=== PATIENT | female | born 1975 | race Two or more races ===

== ENCOUNTER 2018-04-29 17:01 | Inpatient (IN) | payer MEDICAID ==
[~2018-04-29] VITALS: Ht 165.1 cm; Wt 63.5 kg
[2018-04-29] MEDS ORDERED: KETOROLAC TROMETHAMINE 15 MG INJ ONE (17:10)
[2018-04-29] MEDS ORDERED: KETOROLAC TROMETHAMINE 15 MG INJ IM ONE (17:15)
[2018-04-29 17:18] LABS: BASOPHILS # (AUTO) 0.1 K/uL (0.0-8.0); EOSINOPHILS % (AUTO) 0.2 % (0.0-7.0); HEMATOCRIT 35.6 % (31.2-41.9); LYMPHOCYTES # (AUTO) 1.5 K/uL (20.0-40.0); LYMPHOCYTES % (AUTO) 24.5 % (20.5-51.5); MEAN CORPUSCULAR HEMOGLOBIN 28.9 uug (24.7-32.8); MEAN CORPUSCULAR HGB CONC 34 g/dL (32.3-35.6); MEAN CORPUSCULAR VOLUME 85.4 fL (75.5-95.3); MONOCYTES # (AUTO) 0.4 K/uL (2.0-10.0); MONOCYTES % (AUTO) 6.7 % (0.0-11.0); NEUTROPHILS # (AUTO) 4.1 K/uL (1.8-8.9); NEUTROPHILS % (AUTO) 67.6 % (38.5-71.5); PLATELET COUNT (AUTO) 198 K/uL (179-408); RED BLOOD CELL COUNT(AUTO) 4.16 MIL/uL (3.63-4.92); WHITE BLOOD COUNT (AUTO) 6.1 K/uL (3.8-11.8)
--- NOTE | 2018-04-29 17:18 | NUR ---
at bedside to examine patient.
[2018-04-29 17:25] LABS: CREATININE 0.9 mg/dL (0.6-1.3); POTASSIUM 3.9 mmol/L (3.5-5.1)
[2018-04-29 17:31] LABS: BILIRUBIN,DIRECT 0.1 mg/dL (0.0-0.2); BILIRUBIN,TOTAL 0.4 mg/dL (0.2-1.0); TOTAL PROTEIN, SERUM 8.1 g/dL (6.4-8.2)
--- NOTE | 2018-04-29 17:51 | NUR ---
US tech at bedside.
[2018-04-29] MEDS ORDERED: MORPHINE SULFATE 4 MG/1 ML DISP.SYRIN ONE (17:56)
[2018-04-29] MEDS ORDERED: ONDANSETRON ODT 4 MG TAB.RAPDIS ONE (17:57)
[2018-04-29] MEDS ORDERED: ONDANSETRON ODT 4 MG TAB.RAPDIS SL ONE (18:00)
[2018-04-29] MEDS ORDERED: MORPHINE SULFATE 4 MG/1 ML DISP.SYRIN IM ONE (18:00)
--- NOTE | 2018-04-29 18:33 | NUR ---
patient taken down for CT.
--- NOTE | 2018-04-29 18:50 | NUR ---
patient back from CT.
--- NOTE | 2018-04-29 18:59 | NUR ---
Bedside report given to rn. Bryant.
--- NOTE | 2018-04-29 19:26 | NUR ---
ENRIQUE speaking with Dr. Hua (SURGERY).
[2018-04-29] MEDS ORDERED: METRONIDAZOLE 500 MG/NS 100 ML PIGGYBACK IV ONE (19:30)
[2018-04-29] MEDS ORDERED: LEVOFLOXACIN 750 MG/D5W 150 ML PIGGYBACK IV ONE (19:30)
[2018-04-29] MEDS ORDERED: LEVOFLOXACIN 750MG/D5W 150 ML IV ONE (19:37)
[2018-04-29] MEDS ORDERED: METRONIDAZOLE 500 MG/NS 100ML 100 ML IV ONE (19:37)
--- NOTE | 2018-04-29 20:10 | NUR ---
Dr. Hua at bedside.
[2018-04-29] MEDS ORDERED: ONDANSETRON 4 MG/2 ML VIAL ONE (20:28)
[2018-04-29] MEDS ORDERED: ONDANSETRON IV *ER 4 MG/2 ML VIAL IV ONE (20:30)
[2018-04-29] MEDS ORDERED: HYDROMORPHONE 1 MG/1 ML DISP.SYRIN IV ONE (20:30)
[2018-04-29] MEDS ORDERED: HYDROMORPHONE 1 MG/1 ML DISP.SYRIN ONE (20:33)
--- NOTE | 2018-04-29 20:33 | NUR ---
Call placed to [facility], Dr. Laguerre has been paged.
--- NOTE | 2018-04-29 20:46 | NUR ---
Report given to Amparo GUTIERREZ Medsurg.
[2018-04-29] MEDS ORDERED: MORPHINE SULFATE 2 MG/1 ML DISP.SYRIN IV PRN (21:00)
--- NOTE | 2018-04-29 21:15 | NUR ---
Received patient from ED via gurney. Patient is alert and oriented x 4, Farsi speaking, she is accompanied by two friends. Noted patient has IV access at Right antecubital vein, 20g patent and intact. Patient nauseated at the moment, per ED RN patient was just been given Dilaudid and Zofran, will continue to monitor. Oriented patient to unit with her friends translating. Bed kept in low position, side rails up x 2, call light within reach. Noise and lights subdued. Will continue to monitor. Noted Dr. Hua of surgery has no final surgery plans for the patient.
[2018-04-29] MEDS: IV D5/ 0.9% NACL 1,000 ML IV PRN (21:46)
[2018-04-29 21:59] VITALS: BP 108/57
[2018-04-30] MEDS ORDERED: METRONIDAZOLE 500 MG/NS 100ML 100 ML IV ONE (01:08)
[2018-04-30 04:08] VITALS: BP 90/50
[2018-04-30] MEDS: ACETAMINOPHEN 650 MG SUPP.RECT RC PRN (04:57)
[2018-04-30] MEDS: METRONIDAZOLE 500 MG/NS 100ML 500 MG in PREMIXED 1 EACH IV SCH ×3 (05:02→22:21)
--- NOTE | 2018-04-30 05:58 | NUR ---
Patient slept well throughout the night. No recurrence of nause and vomiting noted. With abdominal pain recurrence, however patient's blood pressure was 90/50, morphine not g iven. After verification with mohsen Pandey RN, patient was given tylenol suppository. IV access at right antecubital vein now to ongoing IV fluid, infuisng well. Attended all needs. Ensured patient safety and comfort.
[2018-04-30 06:26] LABS: BASOPHILS % (AUTO) 0.1 % (0.0-2.0); HEMATOCRIT 30.7 % (31.2-41.9); HEMOGLOBIN 10.5 g/dL (10.9-14.3); LYMPHOCYTES # (AUTO) 0.5 K/uL (20.0-40.0); LYMPHOCYTES % (AUTO) 5.1 % (20.5-51.5); MEAN CORPUSCULAR HEMOGLOBIN 29.6 uug (24.7-32.8); MEAN CORPUSCULAR HGB CONC 34 g/dL (32.3-35.6); MONOCYTES # (AUTO) 0.4 K/uL (2.0-10.0); MONOCYTES % (AUTO) 3.8 % (0.0-11.0); NEUTROPHILS # (AUTO) 8.9 K/uL (1.8-8.9); PLATELET COUNT (AUTO) 151 K/uL (179-408); RED BLOOD CELL COUNT(AUTO) 3.57 MIL/uL (3.63-4.92); WHITE BLOOD COUNT (AUTO) 9.8 K/uL (3.8-11.8)
[2018-04-30 06:37] LABS: BILIRUBIN,TOTAL 0.7 mg/dL (0.2-1.0); CREATININE 0.9 mg/dL (0.6-1.3); MAGNESIUM 1.6 mg/dL (1.8-2.4); PHOSPHOROUS 3.4 mg/dL (2.5-4.9); POTASSIUM 3.6 mmol/L (3.5-5.1); TOTAL PROTEIN, SERUM 6.9 g/dL (6.4-8.2)
[2018-04-30] MEDS: PANTOPRAZOLE SODIUM 40 MG VIAL IV SCH (08:05)
[2018-04-30] MEDS ORDERED: MORPHINE SULFATE 4 MG/1 ML DISP.SYRIN IV PRN (08:15)
[2018-04-30] MEDS: IV D5/ 0.9% NACL 1,000 ML IV PRN (09:25)
[2018-04-30] MEDS: ONDANSETRON 4 MG/2 ML VIAL IV PRN (10:12)
[2018-04-30 11:34] VITALS: BP 90/48
[2018-04-30] MEDS: MAGNESIUM SULFATE/D5W 100 ML IV SCH ×2 (12:14→12:48)
[2018-04-30 14:31] LABS: BASOPHILS % (AUTO) 0.1 % (0.0-2.0); HEMATOCRIT 29.4 % (31.2-41.9); LYMPHOCYTES # (AUTO) 0.6 K/uL (20.0-40.0); LYMPHOCYTES % (AUTO) 5.4 % (20.5-51.5); MEAN CORPUSCULAR HEMOGLOBIN 29.6 uug (24.7-32.8); MEAN CORPUSCULAR HGB CONC 34 g/dL (32.3-35.6); MEAN CORPUSCULAR VOLUME 86.7 fL (75.5-95.3); MONOCYTES # (AUTO) 0.4 K/uL (2.0-10.0); MONOCYTES % (AUTO) 3.4 % (0.0-11.0); NEUTROPHILS # (AUTO) 9.4 K/uL (1.8-8.9); NEUTROPHILS % (AUTO) 91.1 % (38.5-71.5); PLATELET COUNT (AUTO) 134 K/uL (179-408); RED BLOOD CELL COUNT(AUTO) 3.39 MIL/uL (3.63-4.92); WHITE BLOOD COUNT (AUTO) 10.3 K/uL (3.8-11.8)
[2018-04-30 14:52] LABS: *BILIRUBIN,URIN NEGATIVE (NEGATIVE); *BLOOD, URINE 2+ (NEGATIVE); *CLARITY,URINE SLIGHTLY CLOUDY (CLEAR); *COLOR,URINE YELLOW (YELLOW); *KETONES,URINE NEGATIVE (NEGATIVE); *UROBILINOGEN,URINE 0.2 E.U./dl (NORMAL); LEUKOCYTE ESTERASE ,URINE TRACE (NEGATIVE); NITRITE, URINE NEGATIVE (NEGATIVE); PH,URINE 5.5 (5.0-8.0); UGLUCOSE NEGATIVE (NEGATIVE)
[2018-04-30 15:04] LABS: BACTERIA,URINE FEW /HPF (NONE SEEN); MUCUS,URINE MODERATE /LPF (0-FEW); SQUAMOUS EPITHELIAL CELL,UR MODERATE /HPF (NONE SEEN); URINE AMORPHOUS URATE FEW /HPF
[2018-04-30] MEDS ORDERED: GLYCOPYRROLATE 0.2 MG/ML VIAL MC ONE (15:06)
[2018-04-30] MEDS ORDERED: NEOSTIGMINE METHYLSULFATE 10 MG/10 ML VIAL IV ONE (15:06)
[2018-04-30] MEDS ORDERED: ONDANSETRON 4 MG/2 ML VIAL IV ONE (15:06)
[2018-04-30] MEDS ORDERED: PROPOFOL 200 MG/20 ML BOTTLE IV ONE (15:06)
[2018-04-30] MEDS ORDERED: IV LACTATED RINGERS SOLUTION 1,000 ML BAG IV ONE (15:06)
[2018-04-30] MEDS ORDERED: LIDOCAINE-MPF 2% 5 ML VIAL MC ONE (15:06)
[2018-04-30] MEDS ORDERED: KETOROLAC TROMETHAMINE 30 MG INJ IM ONE (15:06)
[2018-04-30] MEDS ORDERED: METOCLOPRAMIDE HCL 10 MG/2 ML VIAL IV ONE (15:06)
[2018-04-30] MEDS ORDERED: SEVOFLURANE 250 ML BOTTLE IH ONE (15:06)
[2018-04-30] MEDS ORDERED: MIDAZOLAM HCL 2 MG/2 ML VIAL ONE (15:33)
[2018-04-30] MEDS ORDERED: FENTANYL CITRATE 250 MCG/5 ML AMPUL ONE (15:33)
[2018-04-30] MEDS ORDERED: METOCLOPRAMIDE HCL 10 MG/2 ML VIAL ONE (15:33)
[2018-04-30 15:34] VITALS: BP 92/46
[2018-04-30] MEDS ORDERED: ROCURONIUM BROMIDE 50 MG/5 ML VIAL ONE (15:34)
--- NOTE | 2018-04-30 16:03 | NUR ---
pt went to or via bed for surgery in stable condition
[2018-04-30] MEDS ORDERED: CLINDAMYCIN PHOSPHATE 600 MG/4 ML VIAL ONE (16:07)
[2018-04-30] MEDS ORDERED: BUPIVACAINE/EPI PF 0.25% 30 ML VIAL ONE ×2 (16:07→16:13)
[2018-04-30] MEDS ORDERED: LIDOCAINE HCL 1% 20 ML VIAL ONE (16:07)
[2018-04-30] MEDS ORDERED: NEOMY/BACITRAC/POLYMI OINT 28.35 GM TUBE ONE (17:43)
[2018-04-30 19:12] VITALS: BP 95/43
--- NOTE | 2018-04-30 20:00 | NUR ---
Received patient via hospital bed from operating room accompanied by OR nurses. Received report from BRENDA Clancy. Patient has oxygen support at 2lpm via nasal cannula, saturation noted at 99-100%. Patient with IV access at right antecubital vein, 20g to ongoing D5LR, infusing well. Noted with post-operative dressing on the lower abdomen x 2 and another just above pubic area to jose patel drain, noted draining serosanguineous fluid, minimal in amount. Patient's vital signs are normal. Noted complaining of pain at the moment, prn pain medications given. Maintained on Clear Liquids as ordered. Will continue to monitor.
[2018-04-30] MEDS: MORPHINE SULFATE 4 MG/1 ML DISP.SYRIN IV PRN (20:52)
[2018-04-30] MEDS: CIPROFLOXACIN IV 400 MG in PREMIXED 1 EACH IV SCH (20:53)
[2018-04-30] MEDS: IV D5LR 1,000 ML IV PRN (20:53)
[2018-04-30] MEDS ORDERED: LEVOFLOXACIN 500 MG/D5W 500 MG in PREMIXED 1 EACH IV SCH (21:00)
[2018-04-30 22:00] VITALS: BP 99/53
[2018-04-30 23:00] VITALS: BP 96/59
[2018-05-01] MEDS: MORPHINE SULFATE 4 MG/1 ML DISP.SYRIN IV PRN ×3 (01:28→13:04)
[2018-05-01 02:19] VITALS: BP 95/49
--- NOTE | 2018-05-01 02:30 | NUR ---
Patient already able to void. PRN pain medication given for abdominal pain.
[2018-05-01 03:14] VITALS: BP 108/51
[2018-05-01] MEDS: IV D5LR 1,000 ML IV PRN ×2 (03:41→13:04)
[2018-05-01] MEDS: METRONIDAZOLE 500 MG/NS 100ML 500 MG in PREMIXED 1 EACH IV SCH ×3 (05:20→22:16)
[2018-05-01] MEDS: ACETAMINOPHEN 650 MG SUPP.RECT RC PRN (05:20)
--- NOTE | 2018-05-01 05:30 | NUR ---
Patient slept intermittently throughout the shift. With oxygen support at 2lpm via nasal cannula, saturation noted at 99-100%. Patient still with IV access at right antecubital vein, 20g to ongoing D5LR, infusing well. Noted with post-operative dressing on the lower abdomen x 2, dry and intact and another just above pubic area to jose patel drain, noted draining serosanguineous fluid, minimal in amount. Maintained on Clear Liquids as ordered. Latest temperature is 102.4, tylenol suppository given per rectum. Ensured safety and comfort. Will continue to monitor.
--- NOTE | 2018-05-01 06:14 | NUR ---
Called [facility] exchange to notify specimen accessioner Sagar BETANCUR DNP of patient's elevated temperature of 102.5F post-operatively.
[2018-05-01 06:36] LABS: HEMATOCRIT 27.8 % (31.2-41.9); HEMOGLOBIN 9.5 g/dL (10.9-14.3); LYMPHOCYTES # (AUTO) 0.5 K/uL (20.0-40.0); LYMPHOCYTES % (AUTO) 5.8 % (20.5-51.5); MEAN CORPUSCULAR HEMOGLOBIN 29.6 uug (24.7-32.8); MEAN CORPUSCULAR HGB CONC 34 g/dL (32.3-35.6); MEAN CORPUSCULAR VOLUME 87.1 fL (75.5-95.3); MONOCYTES # (AUTO) 0.3 K/uL (2.0-10.0); MONOCYTES % (AUTO) 3.2 % (0.0-11.0); NEUTROPHILS # (AUTO) 7.7 K/uL (1.8-8.9); PLATELET COUNT (AUTO) 126 K/uL (179-408); RED BLOOD CELL COUNT(AUTO) 3.19 MIL/uL (3.63-4.92); WHITE BLOOD COUNT (AUTO) 8.5 K/uL (3.8-11.8)
--- NOTE | 2018-05-01 07:25 | NUR ---
RECEIVED PATIENT IN BED AWAKE ALERT AND ORIENTED TALKING ON THE PHONE WITH NO S/S OF PAIN OR DISCOMFORTS AT THIS TIME REMAIN ON IVF ORDERED WITH NO S/S OF INFILTERATION AT THIS TIME PATIENT IS ON CLEAR LIQUIDS AT THIS TIME AND DENIES NAUSEA OR VOMITING.ABD REMAINS INTACT WITH EMIR WITH SEROUS SANGUINOUS DRAINGE CALL LIGHTS AND PERSONAL BELONGINGS ARE WITHIN EASY REACH MADE COMFORTABLE AND WILL CONTINUE TO OBSERVE.
[2018-05-01] MEDS: PANTOPRAZOLE SODIUM 40 MG VIAL IV SCH (08:17)
[2018-05-01] MEDS: CIPROFLOXACIN IV 400 MG in PREMIXED 1 EACH IV SCH ×2 (08:23→21:08)
--- NOTE | 2018-05-01 10:37 | NUR ---
CALL RECEIVED FROM DR GREENE WITH NEW ORDERS AND NOTED.
[2018-05-01 10:46] VITALS: BP 93/50
[2018-05-01 11:44] LABS: BILIRUBIN,TOTAL 0.6 mg/dL (0.2-1.0); CREATININE 0.8 mg/dL (0.6-1.3); MAGNESIUM 1.8 mg/dL (1.8-2.4); PHOSPHOROUS 1.3 mg/dL (2.5-4.9); TOTAL PROTEIN, SERUM 6.2 g/dL (6.4-8.2)
--- NOTE | 2018-05-01 11:59 | NUR ---
PATIENT IS UP AND ASSISTED WITH AMBULATION IN THE HALLWAY WITH O2 AND TOLERATED WELL WILL DISCONTINUE THE O2 AND WILL RECHECK THE SATS. DIS NOT WANT TO SIT ON THE CHAIR AT THIS TIME WILL ENCOURAGE TO SIT UP LATER.
[2018-05-01] MEDS ORDERED: NEUTRA PHOS PACKET PO ONE (13:00)
[2018-05-01] MEDS: ONDANSETRON 4 MG/2 ML VIAL IV PRN ×2 (13:10→19:40)
[2018-05-01 15:14] VITALS: BP 98/51
[2018-05-01] MEDS ORDERED: ATOR20TA PO (15:50)
--- NOTE | 2018-05-01 16:00 | NUR ---
PATIENT SEEN AND EXAMINED BY DR GREENE WITH NO NEW ORDERS AT THIS TIME.
--- NOTE | 2018-05-01 18:00 | NUR ---
TOLERATING HER CLEAR LIQUIDS DIET DENIES NAUSEA OR VOMITING AT THIS TIME.
[2018-05-01 19:56] VITALS: BP 105/54
[2018-05-01] MEDS: ACETAMINOPHEN 325 MG TABLET PO PRN (19:56)
[2018-05-02] MEDS: IV D5LR 1,000 ML IV PRN ×2 (00:04→12:48)
[2018-05-02 04:21] VITALS: BP 98/50
[2018-05-02] MEDS: METRONIDAZOLE 500 MG/NS 100ML 500 MG in PREMIXED 1 EACH IV SCH ×2 (05:20→13:54)
[2018-05-02 05:39] LABS: BASOPHILS % (AUTO) 0.2 % (0.0-2.0); EOSINOPHILS % (AUTO) 0.2 % (0.0-7.0); HEMATOCRIT 27.6 % (31.2-41.9); HEMOGLOBIN 9.4 g/dL (10.9-14.3); LYMPHOCYTES # (AUTO) 0.8 K/uL (20.0-40.0); LYMPHOCYTES % (AUTO) 13.6 % (20.5-51.5); MEAN CORPUSCULAR HEMOGLOBIN 29.7 uug (24.7-32.8); MEAN CORPUSCULAR HGB CONC 34 g/dL (32.3-35.6); MONOCYTES # (AUTO) 0.3 K/uL (2.0-10.0); MONOCYTES % (AUTO) 4.8 % (0.0-11.0); NEUTROPHILS # (AUTO) 4.7 K/uL (1.8-8.9); NEUTROPHILS % (AUTO) 81.2 % (38.5-71.5); PLATELET COUNT (AUTO) 119 K/uL (179-408); RED BLOOD CELL COUNT(AUTO) 3.18 MIL/uL (3.63-4.92); WHITE BLOOD COUNT (AUTO) 5.8 K/uL (3.8-11.8)
[2018-05-02] MEDS: ACETAMINOPHEN 325 MG TABLET PO PRN (05:40)
[2018-05-02 05:52] LABS: CREATININE 0.7 mg/dL (0.6-1.3); MAGNESIUM 1.8 mg/dL (1.8-2.4); PHOSPHOROUS 2.3 mg/dL (2.5-4.9); POTASSIUM 3.1 mmol/L (3.5-5.1)
--- NOTE | 2018-05-02 06:06 | NUR ---
Patient rested well in between care; VSS; assisted to bathroom; diarrhea x1; c/o pain x2; refused morphine but had tylenol; vomiting x1 at the start of shift, bilous ; zofran given IVP; assited to bathroom and gets SOB; instructed to have Bed Rest for now; O2 applied;
[2018-05-02] MEDS: PANTOPRAZOLE SODIUM 40 MG TABLET.DR PO SCH (06:11)
--- NOTE | 2018-05-02 07:30 | NUR ---
PATIENT RECEIVED IN BED DOZING ON AND OFF BUT SEEMS COMFORTABLE WITH O2 AT 2L/M WITH NO SHORTNESS OF BREATH AT THIS TIME IVF TO HER RIGHT FOREARM REMAINS INTACT WITH IVF OPRDERED.INCENTIVE SPIROMETER IS AT THE BEDSIDE ENCOURAGED AND REEDUCATED ON USE AND SHE EXPRESSED UNDERSTANDING.EMIR REMAINS INTACT WITH DRAINAGE AT THIS TIME WITH DRESSINGS ON THE SCPOE SITED DRY AND INTACT CALL LIGHTS AND PERSOANL BELONGINGS ARE WITHIN EASY REACH AT THIS TIME WILL CONTINUE TO OBSERVE.
[2018-05-02] MEDS: CIPROFLOXACIN IV 400 MG in PREMIXED 1 EACH IV SCH (08:12)
[2018-05-02 11:52] VITALS: BP 113/70
[2018-05-02] MEDS: ONDANSETRON 4 MG/2 ML VIAL IV PRN (12:49)
[2018-05-02] MEDS: POTASSIUM PHOSPHATE MM 7.5 MMOL in IV DEXTROSE 5% 100 ML IV SCH ×2 (13:43→18:41)
--- NOTE | 2018-05-02 15:25 | NUR ---
PATIENT IS NOT HAVING A GOOD DAY WAS HAVING NAUSEA WAS MEDICATED WITH ZOFRAN SHE STATED ALSO THAT SHE HAS PAIN BUT REFUSED TO TAKE PAIN MEDICATIONS ORDERED DID NOT EAT HER LUNCH COMPLAINED OF RIB PAIN TO DR ROMERO FOR WHICH HE ORDERED CXR DONE BUT NO RESULTS SO DR GREENE WAS CALLED AND NOTIFIED RE NAUSEA AND PAIN FACTOR WITH NEW ORDERS PATIENT IS ALSO HAVING FRQUENT STOOLING MUSHY AND SOFT BUT NOT DIARRHEA MD AWARE. WILL CONTINUE TO OBSERVE.
[2018-05-02] MEDS ORDERED: HYDROMORPHONE 1 MG/1 ML DISP.SYRIN IV PRN (15:30)
[2018-05-02] MEDS ORDERED: PROCHLORPERAZINE EDISYLATE 10 MG/2 ML VIAL IM PRN (15:30)
[2018-05-02 16:00] VITALS: BP 109/69
--- NOTE | 2018-05-02 17:30 | NUR ---
RESULT OF CXR THAT WAS ORDERED TODAY WAS RETRIEVED FROM THE [employer] AND CALLED TO DR ROMERO WITH NO NEW ORDERS AT THIS TIME.
--- NOTE | 2018-05-02 18:30 | NUR ---
DR GREENE HERE TO SEE PATIENT AND REMOVED THE EMIR AND DRY DRESSING APPLIED PATIENT STATED FEELS BETTER IN TERMS OF NAUSEA.WANTED ICE CREAM OKAYED ORDERED AND SHE TOLERATED WELL
[2018-05-02] MEDS ORDERED: ACETAMINOPHEN 325 MG TABLET PO PRN (19:30)
[2018-05-02] MEDS ORDERED: IBUPROFEN 800 MG TABLET PO ONE (19:30)
[2018-05-02] MEDS ORDERED: ACETAMINOPHEN 325 MG TABLET PO ONE (19:30)
[2018-05-02 19:51] VITALS: BP 111/63
[2018-05-02] MEDS ORDERED: CIPROFLOXACIN HCL 250 MG TABLET ONE (20:33)
[2018-05-02] MEDS: METRONIDAZOLE 500 MG TABLET PO SCH (21:37)
[2018-05-02] MEDS: CIPROFLOXACIN HCL 250 MG TABLET PO SCH (21:37)
[2018-05-03 05:33] VITALS: BP 103/67
[2018-05-03 06:28] LABS: BILIRUBIN,TOTAL 0.3 mg/dL (0.2-1.0); CREATININE 0.6 mg/dL (0.6-1.3); MAGNESIUM 1.6 mg/dL (1.8-2.4)
[2018-05-03 06:32] LABS: POTASSIUM 2.8 mmol/L (3.5-5.1)
[2018-05-03 06:33] LABS: HEMOGLOBIN 9.2 g/dL (10.9-14.3); MONOCYTES # (AUTO) 0.3 K/uL (2.0-10.0); NEUTROPHILS # (AUTO) 2.4 K/uL (1.8-8.9)
[2018-05-03] MEDS: PANTOPRAZOLE SODIUM 40 MG TABLET.DR PO SCH (06:39)
[2018-05-03] MEDS: METRONIDAZOLE 500 MG TABLET PO SCH ×2 (06:39→14:28)
[2018-05-03 06:51] LABS: BASOPHILS % (AUTO) 0.3 % (0.0-2.0); EOSINOPHILS % (AUTO) 1.2 % (0.0-7.0); HEMATOCRIT 26.9 % (31.2-41.9); LYMPHOCYTES # (AUTO) 1.2 K/uL (20.0-40.0); LYMPHOCYTES % (AUTO) 29.5 % (20.5-51.5); MEAN CORPUSCULAR HEMOGLOBIN 29.4 uug (24.7-32.8); MEAN CORPUSCULAR HGB CONC 34 g/dL (32.3-35.6); MEAN CORPUSCULAR VOLUME 86.3 fL (75.5-95.3); MONOCYTES % (AUTO) 7.8 % (0.0-11.0); NEUTROPHILS % (AUTO) 61.2 % (38.5-71.5); PLATELET COUNT (AUTO) 146 K/uL (179-408); RED BLOOD CELL COUNT(AUTO) 3.12 MIL/uL (3.63-4.92)
[2018-05-03 06:53] LABS: WHITE BLOOD COUNT (AUTO) 3.9 K/uL (3.8-11.8)
--- NOTE | 2018-05-03 07:04 | NUR ---
Patient rested well in between care; no acute distress; assisted with needs; VSS; K is 2.8; endorsed to [facility] to inform MD; continue to monitor.
[2018-05-03] MEDS: CIPROFLOXACIN HCL 250 MG TABLET PO SCH (09:33)
[2018-05-03] MEDS ORDERED: MAGNESIUM OXIDE 400 MG TABLET PO ONE (10:45)
[2018-05-03] MEDS ORDERED: POTASSIUM CHLORIDE 20 MEQ TAB.PRT.SR PO ONE (10:45)
[2018-05-03 11:22] VITALS: BP 106/55
[2018-05-03] MEDS ORDERED: ACETAMINOPHEN 325 MG TABLET PO SCH (14:00)
[2018-05-03] MEDS ORDERED: IBUPROFEN 800 MG TABLET PO SCH (14:00)
[2018-05-03] MEDS ORDERED: OMEP20TA20 PO (14:34)
[2018-05-03] MEDS ORDERED: ACET325T53 PO (14:34)
[2018-05-03] MEDS ORDERED: METR-147 PO (14:34)
[2018-05-03] MEDS ORDERED: LACT1CAP61 PO (14:34)
[2018-05-03] MEDS ORDERED: CIPR250T4 PO (14:34)
[2018-05-03 15:35] VITALS: BP 119/66
--- NOTE | 2018-05-03 18:30 | NUR ---
IV DISCONTINUED,ALL HOME MEDICATIONS ARE REVIEWED WITH [facility] IN TO REVIEW HOME RX WITH MANAGER ACUTE LORNA D/C TO HOME WITH WHEELCHAIR TO FRIEND TO HOME
[2018-05-03] MEDS ORDERED: ATORVASTATIN 20 MG TABLET PO SCH (21:00)
== END 2018-05-03 18:25 | disposition home or self-care (01) | DRG 343 ==
LOC: ER 17:02 → MED 20:45
PROVIDERS: ADMIT Internal Medicine; ATTEND Internal Medicine
PROC: 0U964ZZ Drainage of Left Fallopian Tube, Percutaneous Endoscopic Approach (ICD-10-PCS; principal; 2018-04-30)
PROC: 0U914ZZ Drainage of Left Ovary, Percutaneous Endoscopic Approach (ICD-10-PCS; principal; 2018-04-30)
PROC: 0DTJ4ZZ Resection of Appendix, Percutaneous Endoscopic Approach (ICD-10-PCS; principal; 2018-04-30)
DX: K35.80 Unspecified acute appendicitis (principal); N70.93 Salpingitis and oophoritis, unspecified; D25.9 Leiomyoma of uterus, unspecified; E78.5 Hyperlipidemia, unspecified; D64.9 Anemia, unspecified; E83.39 Other disorders of phosphorus metabolism
CPT/HCPCS: 36415; 71045; 76856; 83690; 83735; 84100; 85025; 85730; 87040; 87070; 87075; 87077; A4663; C9113; G0378; J0744; J0780; J1170; J1885; J1956; J2250; J2270; J2405; J2710; J2765; J3010; J3475; J3490; J7030; J7042; J7060; J7120; Q0162